=== PATIENT | male | born 1955 ===

== ENCOUNTER 2019-09-05 10:20 | Outpatient (CLI) | payer OTHER, SELFPAY | END 2019-09-05 10:21 | disposition home or self-care (01) | PROVIDERS: PCP Physician Assistant; Visit Provider Physician Assistant | DX: J02.9 Acute pharyngitis, unspecified (principal) | CPT/HCPCS: 87070 ==

== ENCOUNTER → 2020-08-01 10:34 | Outpatient (CLI) | payer OTHER, SELFPAY ==
[2020-08-01 20:53] LABS: SARS-CoV-2 RNA PCR Negative
== END ==
PROVIDERS: PCP Physician Assistant; Visit Provider Physician Assistant
DX: R68.89 Other general symptoms and signs (principal); Z20.822 Contact with and (suspected) exposure to COVID-19
CPT/HCPCS: C9803; U0003; U0005

== ENCOUNTER 2022-03-02 18:08 | Emergency (ER) | payer MEDICARE, SELFPAY ==
--- NOTE | ~2022-03-02 | XR_ITS ---
EXAM: XR knee LT min 4V DATE: 03/02/2022 18:40 HISTORY: Pain today after twisting left knee . COMPARISON: None available. FINDINGS: Normal mineralization. No fracture or dislocation. No lytic or blastic lesion. Moderate ar thritic change in the knee. Quadriceps enthesopathy. No erosion or periosteal change. Irregular ossif ication projecting over the suprapatellar recess, may reflect loose joint bodies or dystrophic calcif ication. Increased soft tissue density overlying the distal anterior thigh soft tissues. Vascular per cifications. IMPRESSION: No acute osseous finding in the left knee. Possible distal anterior thigh contusion. Reviewed, dictated and finalized at location K.
[2022-03-02 18:18] VITALS: BP 118/107; PULSE 106; RESP 16; TEMP 37.2; O2SAT 100
--- NOTE | 2022-03-02 18:49 | ED.EXTPRO ---
HPI - Extremity Problem General Chief complaint: Extremity Problem,Nontraumatic Stated complaint: left knee injury Time Seen by Provider: 03/02/22 18:20 Source: patient Mode of arrival: ambulatory Limitations: no limitations History of Present Illness HPI Narrative: Mr. Griffiths is a 66-year-old male patient presenting to the clinic today with complaints of left knee pain. 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 He reports some swelling and pain with ambulation to the left knee. He does report at times it feels as though it is going to give out again. He denies feeling that it is catching. Has some pain up into the left distal thigh as well Related Data Home Medications Medication Instructions Recorded Confirmed No Home Medications 03/02/22 03/02/22 Allergies Allergy/AdvReac Type Severity Reaction Status Date / Time No Known Allergies Allergy Verified 03/02/22 18:18 Review of Systems Review of Systems: Pertinent positives per HPI. Patient denies any fever, chills, rash, headache, visual changes, dizziness, cough, runny nose, sore throat, shortness of breath, chest pain, palpitations, nausea, vomiting, diarrhea, constipation, abdominal pain, or any urinary issues. [facility] Past Medical History Medical History Alcoholism Surgical History Surgical History H/O prostate biopsy (~2017) H/O vasectomy (~1996) H/O wisdom tooth extraction (~1976) Family History Family History Father Diabetes mellitus Mother Pancreatic cancer Sibling Liver failure Cerebrovascular accident Social History Social History Smoking status: Former smoker Second hand tobacco smoke exposure: No Alcohol intake: current Substance use: never Comments At the time of my signature, I reviewed and agree with the nursing past medical, surgical, social, and family history. There is no relevant family history pertinent to the patient complaint. Exam Narrative: General: Well-developed, well nourished, in no apparent distress Head: Normocephalic, atraumatic. Cardio: Regular rate and rhythm, s1 and s2 normal, no murmur appreciated. Resp: Clear to auscultation bilaterally, no rhonchi, rales, wheezing or rubs. Musculoskeletal: No deformity, redness and swelling noted to the left knee when compared to the right, tender to palpation over the medial and lateral knee, most pain is with flexion of the left knee however there is some pain with extension, tenderness to palpation of the distal anterior thigh as well, muscle strength strong and equal, peripheral pulse strong, no edema, no cyanosis, normal gait and station Course Course Emergency Course: Portions of this record may have been created with voice recognition software. Level of Care: Express Care Visit Vital Signs Vital signs: Vital Signs Temperature 37.2 C 03/02/22 18:18 Pulse Rate 106 H 03/02/22 18:18 Respiratory Rate 16 03/02/22 18:18 Blood Pressure 118/107 H 03/02/22 18:18 Pulse Oximetry 100 03/02/22 18:18 Oxygen Delivery Room Air 03/02/22 18:18 Temperature 37.2 C 03/02/22 18:18 Pulse Rate 106 H 03/02/22 18:18 Respiratory Rate 16 03/02/22 18:18 Blood Pressure 118/107 H 03/02/22 18:18 Pulse Oximetry 100 03/02/22 18:18 Oxygen Delivery Room Air 03/02/22 18:18 Vital signs reviewed MDM - Extremity (Nontraumatic) MDM Narrative Medical decision making narrative: At the time of visit patient is resting comfortably on the exam table. X-ray was performed and was negative for any fracture or malalignment of the left knee joint. No sign of infusi
== END 2022-03-02 18:58 | disposition home or self-care (01) ==
PROVIDERS: Emergency Provider Nurse Practitioner Family; PCP Physician Assistant
DX: M23.92 Unspecified internal derangement of left knee (principal); S76.912A Strain of unspecified muscles, fascia and tendons at thigh level, left thigh, initial encounter; W19.XXXA Unspecified fall, initial encounter; Z98.52 Vasectomy status; Z87.891 Personal history of nicotine dependence
CPT/HCPCS: 73564; 99213; G0463

== ENCOUNTER 2023-03-04 10:23 | Outpatient (CLI) | payer MEDICARE, SELFPAY ==
--- NOTE | 2023-03-04 11:07 | ECG_ITS ---
Measurements Intervals [place] Rate: 72 P: 2 MS: 188 QRS: -44 QRSD: 98 T: 11 QT: 403 QTc: 443 Interpretive Statements SINUS RHYTHM ATRIAL AND VENTRICULAR PREMATURE COMPLEXES LEFT AXIS DEVIATION EARLY PRECORDIAL R/S TRANSITION INFERIOR INFARCT, AGE INDETERMINATE BASELINE WANDER- I ABNORMAL ECG NO PREVIOUS ECG AVAILABLE FOR COMPARISON Electronically Signed On 03-04-2023 11:51:29 CDT by Aroldo Gómez D.O.
== END 2023-03-04 10:24 | disposition home or self-care (01) ==
PROVIDERS: PCP Physician Assistant; Visit Provider Physician Assistant
DX: I49.9 Cardiac arrhythmia, unspecified (principal)
CPT/HCPCS: 93005